=== PATIENT | male | born 1995 | race Caucasian/White ===

== ENCOUNTER 2017-01-24 18:52 | Emergency (ER) | payer OTHER ==
[2017-01-24 19:51] VITALS: BP 142/69
[2017-01-24] MEDS ORDERED: DOXYcycline CAP(*) 100 MG PO ONE (20:18)
--- NOTE | 2017-01-24 20:32 | UC ---
General HPI - HPI Summary HPI Summary: HIKING IN [place] TODAY NOTICED 3X TICKS ON RIGHT CHEST. NO RASH NO FEVER. NO JOINT PAIN. NEEDS TO HAVE TICKS REMOVED. - History of Current Complaint Chief Complaint: Bong Stated Complaint: TICK BITE Time Seen by Provider: 01/24/17 19:20 Hx Obtained From: Patient, Family/Stitchdown Toe Former Onset/Duration: Sudden Onset, Lasting Hours Onset Severity: Mild Current Severity: Mild Associated Signs & Symptoms: Negative: Fever, Nausea, Syncope - Allergy/Home Medications Allergies/Adverse Reactions: Allergies Allergy/AdvReac Type Severity Reaction Status Date / Time No Known Allergies Allergy Verified 01/24/17 19:51 PMH/Surg Hx/FS Hx/Imm Hx Previously Healthy: Yes - Surgical History Surgical History: None Surgery Procedure, Year, and Place: denies - Family History Known Family History: Negative: Blood Disorder - Social History Occupation: Employed Full-time Lives: With Family Alcohol Use: Occasionally Substance Use Type: None Smoking Status (MU): Never Smoked Tobacco - Immunization History Most Recent Influenza Vaccination: none Most Recent Tetanus Shot: within last 10 years Most Recent Pneumonia Vaccination: never Review of Systems Constitutional: Negative Skin: Other - 3 X TICK EMBEDDED IN RIGHT CHEST Eyes: Negative ENT: Negative Respiratory: Negative Cardiovascular: Negative Gastrointestinal: Negative Genitourinary: Negative Motor: Negative Neurovascular: Negative Musculoskeletal: Negative Neurological: Negative Psychological: Negative Is Patient Immunocompromised?: No All Other Systems Reviewed And Are Negative: Yes Physical Exam Triage Information Reviewed: Yes Appearance: Well-Appearing, No Pain Distress, Well-Nourished Vital Signs: Initial Vital Signs Temp 98.8 F 01/24/17 19:45 Pulse 76 01/24/17 19:45 Resp 18 01/24/17 19:45 BP 142/69 01/24/17 19:45 Pulse Ox 100 01/24/17 19:45 Vital Signs Reviewed: Yes Eye Exam: Normal ENT Exam: Normal Dental Exam: Normal Neck exam: Normal Neck: Positive: Supple, Nontender Respiratory Exam: Normal Respiratory: Positive: Chest non-tender, Lungs clear, Normal breath sounds, No respiratory distress Cardiovascular Exam: Normal Cardiovascular: Positive: RRR, No Murmur, Pulses Normal Abdominal Exam: Normal Musculoskeletal Exam: Normal Neurological Exam: Normal Psychological Exam: Normal Skin: Positive: Other - 3 X TICKS IN RIGHT CHEST REMOVED WITH TICK TWISTER Course/Dx - Differential Dx - Multi-Symptom Differential Diagnoses: Metabolic Abnormality, Sepsis Provider Diagnoses: TICK REMOVAL AND TICK BITE PROPHYLAXIS Discharge - Discharge Plan Condition: Stable Disposition: HOME Patient Education Materials: Tick Bite (ED) Referrals: Non Staff,Doctor [Primary Care Provider] -
== END 2017-01-24 20:35 | disposition home or self-care (01) ==
LOC: UCEAST 18:52
DX: S20.369A Insect bite (nonvenomous) of unspecified front wall of thorax, initial encounter (principal); W57.XXXA Bitten or stung by nonvenomous insect and other nonvenomous arthropods, initial encounter; Y93.9 Activity, unspecified; Y92.9 Unspecified place or not applicable; Y99.9 Unspecified external cause status
CPT/HCPCS: 99212; A9270-GY; G0463